=== PATIENT | male | born 1980 | race Caucasian/White ===

== ENCOUNTER 2018-02-23 12:00 | Inpatient (IN) | payer MEDICAID ==
[2018-02-23] MEDS: ONDANSETRON 4 MG INJ IV (12:26)
[2018-02-23] MEDS: morphine 4 MG/ML VIAL IV (12:26)
[2018-02-23 12:42] LABS: ADD MAN DIFF? NO
[2018-02-23 12:47] LABS: BASOPHILS % 0.2 % (0.0-2.0); HEMATOCRIT 44.9 % (42.0-52.0); HEMOGLOBIN 14.8 g/dl (14.0-18.0); LYMPHOCYTES # 0.8 10^3/ul (0.8-2.9); LYMPHOCYTES % 3.8 % (15.0-51.0); MEAN PLATELET VOLUME 8.9 fl (7.4-10.4); MONOCYTE # 1.2 10^3/ul (0.3-0.9); MONOCYTES % 5.9 % (0.0-11.0); NEUTROPHIL # 18.5 10^3/ul (1.6-7.5); NEUTROPHILS % 89.6 % (39.0-77.0); PLATELET COUNT 336 10^3/UL (140-415); RED CELL DISTRIBUTION WIDTH 13.3 % (11.5-14.5)
[2018-02-23 12:47] LABS: WHITE BLOOD COUNT 20.7 10^3/ul (4.8-10.8)
[2018-02-23 12:52] LABS: ADD UMIC YES; UR ASCORBIC ACID NEGATIVE (NEGATIVE); UR BILIRUBIN (Dip) NEGATIVE (NEGATIVE); UR BLOOD (Dip) NEGATIVE (NEGATIVE); UR CLARITY CLEAR (CLEAR); UR COLOR YELLOW (YELLOW); UR GLUCOSE (Dip) NEGATIVE (NEGATIVE); UR KETONES (Dip) NEGATIVE (NEGATIVE); UR LEUKOCYTE ESTERASE (Dip) NEGATIVE Leu/ul (NEGATIVE); UR MUCUS FEW /HPF (NONE SEEN); UR NITRITE (Dip) NEGATIVE (NEGATIVE); UR RBC 0 /HPF (0-5); UR TOTAL PROTEIN (Dip) 1+ mg/dl (NEGATIVE); UR UROBILINOGEN (Dip) NEGATIVE (NEGATIVE); UR WBC 1 /HPF (0-5)
[2018-02-23 13:15] LABS: ALANINE AMINOTRANSFERASE 16 IU/L (13-69); ALBUMIN 4.6 g/dl (3.3-4.9); ALBUMIN/GLOBULIN RATIO 1.31; ALKALINE PHOSPHATASE 79 IU/L (42-121); ANION GAP 15 (8-16); ASPARTATE AMINO TRANSFERASE 28 IU/L (15-46); BILIRUBIN,INDIRECT 1.4 mg/dl (0-1.1); BILIRUBIN,TOTAL 1.4 mg/dl (0.2-1.3); BLOOD UREA NITROGEN 13 mg/dl (7-20); CALCIUM 9.1 mg/dl (8.4-10.2); CARBON DIOXIDE 27 mmol/L (21-31); CHLORIDE 101 mmol/L (97-110); CREATININE 0.73 mg/dl (0.61-1.24); GLUCOSE 127 mg/dl (70-220); LIPASE 25 U/L (23-300); POTASSIUM 3.9 mmol/L (3.5-5.1); SODIUM 139 mmol/L (135-144); TOTAL PROTEIN 8.1 g/dl (6.1-8.1)
[2018-02-23] MEDS: SOD CHLORIDE 0.9% 1,000 ML IV (13:30)
[2018-02-23] MEDS: PIPER-TAZO 3.375 GM IV (PMX) 100 ML IVPB (13:38)
[2018-02-23] MEDS: KETOROLAC 30 MG INJ IV (13:45)
[2018-02-23] MEDS ORDERED: ONDANSETRON 4 MG INJ IV ×3 (14:30→19:30)
[2018-02-23] MEDS ORDERED: ACETAMINOPHEN 325 MG TAB PO (14:30)
[2018-02-23] MEDS ORDERED: NACL 0.9% 3 ML SYG IV (14:30)
[2018-02-23] MEDS ORDERED: morphine 2 MG INJ IV ×2 (14:30→19:30)
[2018-02-23] MEDS: DEXTROSE 5%-0.45% NACL 1,000 ML IV ×2 (15:10→22:44)
[2018-02-23] MEDS ORDERED: BUPIVACAINE 0.25%/EPI (MDV) 50 ML VIAL INJ (18:43)
[2018-02-23] MEDS ORDERED: MIDAZOLAM 1 MG/ML 2 ML INJ (18:48)
[2018-02-23] MEDS ORDERED: HYDROmorphONE 1 MG/5 ML IV SYRINGE IV (19:00)
[2018-02-23] MEDS ORDERED: DIPHENHYDRAMINE 50 MG INJ IV (19:00)
[2018-02-23] MEDS ORDERED: FENTAnyl 50 MCG/ML VIAL IV (19:00)
[2018-02-23] MEDS: BUPIVACAINE 0.25%/EPI (SDV) 30 ML INJ (19:16)
[2018-02-23] MEDS ORDERED: ONDANSETRON 4 MG INJ (19:30)
[2018-02-23] MEDS ORDERED: OXYCODONE/ACETAMINOPHEN (5/325) TAB PO (19:30)
[2018-02-23] MEDS ORDERED: ROCURONIUM 50 MG INJ (19:31)
[2018-02-23] MEDS ORDERED: LIDOCAINE 2% (SDV) 5 ML INJ (19:31)
[2018-02-23] MEDS ORDERED: PROPOFOL 20 ML (19:31)
[2018-02-23] MEDS ORDERED: GLYCOPYRROLATE 0.4 MG INJ (19:32)
[2018-02-23] MEDS ORDERED: CEFAZOLIN 1 GM INJ (19:32)
[2018-02-23] MEDS ORDERED: NEOSTIGMINE 3 MG/3 ML SYRINGE (19:32)
[2018-02-23] MEDS: HYDROmorphONE 1 MG/5 ML IV SYRINGE IV (19:56)
[2018-02-23] MEDS: MEPERIDINE 25 MG INJ IV (19:56)
[2018-02-23] MEDS ORDERED: PIPER-TAZO 3.375 GM IV (PMX) 100 ML IVPB (22:00)
[2018-02-23] MEDS: CEFAZOLIN 1 GM/50 ML (PMX) 50 ML IVPB (22:43)
[2018-02-24] MEDS: OXYCODONE/ACETAMINOPHEN (5/325) TAB PO (02:57)
[2018-02-24] MEDS: PANTOPRAZOLE 40 MG INJ IV (05:27)
[2018-02-24 06:48] LABS: ADD MAN DIFF? NO
[2018-02-24 06:51] LABS: WHITE BLOOD COUNT 12.9 10^3/ul (4.8-10.8)
[2018-02-24 06:51] LABS: BASOPHILS % 0.2 % (0.0-2.0); EOSINOPHILS % 0.2 % (0.0-7.0); HEMATOCRIT 41.8 % (42.0-52.0); HEMOGLOBIN 13.8 g/dl (14.0-18.0); LYMPHOCYTES # 1.1 10^3/ul (0.8-2.9); LYMPHOCYTES % 8.6 % (15.0-51.0); MEAN CORPUSCULAR HEMOGLOBIN 30.1 pg (29.0-33.0); MEAN CORPUSCULAR VOLUME 91.3 fl (82.0-101.0); MEAN PLATELET VOLUME 8.9 fl (7.4-10.4); MONOCYTE # 0.8 10^3/ul (0.3-0.9); MONOCYTES % 5.9 % (0.0-11.0); NEUTROPHIL # 10.9 10^3/ul (1.6-7.5); NEUTROPHILS % 84.7 % (39.0-77.0); PLATELET COUNT 287 10^3/UL (140-415); RED BLOOD COUNT 4.58 10^6/ul (4.70-6.10); RED CELL DISTRIBUTION WIDTH 13.7 % (11.5-14.5)
[2018-02-24 07:16] LABS: ALANINE AMINOTRANSFERASE 13 IU/L (13-69); ALBUMIN 3.5 g/dl (3.3-4.9); ALBUMIN/GLOBULIN RATIO 1.25; ALKALINE PHOSPHATASE 59 IU/L (42-121); ANION GAP 14 (8-16); ASPARTATE AMINO TRANSFERASE 25 IU/L (15-46); BILIRUBIN,INDIRECT 1.3 mg/dl (0-1.1); BILIRUBIN,TOTAL 1.3 mg/dl (0.2-1.3); BLOOD UREA NITROGEN 10 mg/dl (7-20); CALCIUM 8.2 mg/dl (8.4-10.2); CARBON DIOXIDE 27 mmol/L (21-31); CHLORIDE 103 mmol/L (97-110); CREATININE 0.78 mg/dl (0.61-1.24); GLUCOSE 110 mg/dl (70-220); MAGNESIUM 2.2 mg/dl (1.7-2.5); POTASSIUM 4.1 mmol/L (3.5-5.1); SODIUM 140 mmol/L (135-144); TOTAL PROTEIN 6.3 g/dl (6.1-8.1)
== END 2018-02-24 16:15 | disposition home or self-care (01) | DRG 343 ==
LOC: FTE 12:00 → REC 13:50 → PP2 21:05
PROC: 0DTJ4ZZ Resection of Appendix, Percutaneous Endoscopic Approach (ICD-10-PCS; principal; 2018-02-23 18:46)
DX: K35.80 Unspecified acute appendicitis (principal); K52.9 Noninfective gastroenteritis and colitis, unspecified; N50.811 Right testicular pain
CPT/HCPCS: 36415; 74176; 76870; 80053; 81001; 83690; 83735; 85025; 88304; 96374; 96375; 99285-25